=== PATIENT | female | born 1945 | race African-American/Black ===

== ENCOUNTER 2017-06-18 20:52 | Emergency (ER) | payer OTHER ==
[~2017-06-18 20:52] MED LIST: ATROPINE 1 MG/10 ML SYRINGE; CA CHLORIDE 10% 10 ML SYRINGE; DEXTROSE 50% 50 ML SYRINGE; EPINEPHrine 0.1 MG/ML SYG; NA BICARBONATE 8.4% 50 ML SYG
[2017-06-18] MEDS ORDERED: SOD CHLORIDE 0.9% 1,000 ML IV (21:14)
[2017-06-18] MEDS ORDERED: NORepinephrine 8MG/250 ML (PMX 250 ML IV (21:30)
== END 2017-06-19 00:05 | disposition expired ==
LOC: E/R 06-19 00:05
DX: I46.9 Cardiac arrest, cause unspecified (principal); I10 Essential (primary) hypertension; J44.9 Chronic obstructive pulmonary disease, unspecified; E66.9 Obesity, unspecified
CPT/HCPCS: 31500; 92950; 93005; 94002; 99291-25